=== PATIENT | male | born 1990 | race American Indian/Alaskan Native ===

== ENCOUNTER 2017-10-05 20:24 | Emergency (ER) | payer MEDICAID ==
[2017-10-05 20:32] VITALS: BP 136/72; PULSE 78; RESP 16; TEMP 98; O2SAT 98
--- NOTE | 2017-10-05 21:21 | ED PDOC ---
HPI: Psych/Substance Abuse Time Seen by Provider: 10/05/17 21:09 Chief Complaint (Nursing): Medical Clearance Chief Complaint (Provider): history of schizophrenia History/Exam Limitations: no limitations Involuntary Hold By: Local Law Enforcement Additional Complaint(s): Pt brought in to ER for evaluation prior to incarceration. Pt has no complaints. Has h/o schizophrenia on medications and he reports compliance. Denies suicidal or homicidal ideation Denies hallucinations PMD Dr Williamson (sp?) Past Medical History Reviewed: Historical Data, Nursing Documentation, Vital Signs Vital Signs: Last Vital Signs Temp 98.0 F 10/05/17 20:30 Pulse 78 10/05/17 20:30 Resp 16 10/05/17 20:30 BP 136/72 10/05/17 20:30 Pulse Ox 98 10/05/17 20:30 - Medical History PMH: Schizophrenia - Surgical History Surgical History: No Surg Hx - Family History Family History: States: No Known Family Hx - Social History Current smoker - smoking cessation education provided: Yes - Allergies Allergies/Adverse Reactions: Allergies Allergy/AdvReac Type Severity Reaction Status Date / Time No Known Allergies Allergy Verified 10/05/17 20:30 Review of Systems ROS Statement: Except As Marked, All Systems Reviewed And Found Negative Physical Exam - Reviewed Nursing Documentation Reviewed: Yes Vital Signs Reviewed: Yes - Physical Exam Appears: Positive for: Non-toxic, No Acute Distress Head Exam: Positive for: ATRAUMATIC, NORMOCEPHALIC Skin: Positive for: Warm, Dry Eye Exam: Positive for: EOMI, PERRL ENT: Positive for: Pharynx Is (clear) Neck: Positive for: Painless ROM, Supple Cardiovascular/Chest: Positive for: Regular Rate, Rhythm. Negative for: Murmur Respiratory: Positive for: Normal Breath Sounds. Negative for: Wheezing Gastrointestinal/Abdominal: Positive for: Soft. Negative for: Tenderness Back: Positive for: Normal Inspection. Negative for: Decreased ROM Extremity: Positive for: Normal ROM. Negative for: Deformity Neurologic/Psych: Positive for: Alert. Negative for: Motor/Sensory Deficits - ECG O2 Sat by Pulse Oximetry: 98 - Progress ED Course And Treament: Pt medically stable for incarceration Pending Crisis eval 2230 Evaluated by CW. Pt psychiatrically stable for incarceration Disposition - Clinical Impression Clinical Impression: Schizophrenia - Disposition Disposition: Routine/Home Disposition Time: 21:22 Condition: GOOD Additional Instructions: MEDICALLY AND PSYCHIATRICALLY STABLE FOR INCARCERATION CONTINUE ALL MEDICATIONS PRESCRIBED Instructions: Schizophrenia
== END 2017-10-05 22:41 ==
LOC: H.ER 20:24
DX: F20.9 Schizophrenia, unspecified (principal); F17.200 Nicotine dependence, unspecified, uncomplicated

== ENCOUNTER 2017-12-08 20:53 | Emergency (ER) | payer MEDICAID ==
[2017-12-08 20:56] VITALS: BP 127/77; PULSE 69; RESP 16; O2SAT 99
--- NOTE | 2017-12-08 21:10 | ED PDOC ---
HPI: General Adult Time Seen by Provider: 12/08/17 20:58 Chief Complaint (Nursing): Medical Clearance Chief Complaint (Provider): Medical and Psych Clearance History Per: Patient, Other ([place] [employer]) History/Exam Limitations: no limitations Additional Complaint(s): 27-year-old male brought to ED by [place] [employer] for medical and psychiatric clearance prior to incarceration. Patient offers no complaints at this time. Of note, PD at bedside reports patient may have swallowed bags marijuana just prior to arrest. Patient does admit to recreational marijuana use but denies swallowing the bags. PMD: None provided Past Medical History Reviewed: Historical Data, Nursing Documentation, Vital Signs Vital Signs: Last Vital Signs Temp 98.1 F 12/08/17 22:37 Pulse 69 12/08/17 20:54 Resp 16 12/08/17 20:54 BP 127/77 12/08/17 20:54 Pulse Ox 99 12/09/17 16:15 - Medical History PMH: Schizophrenia - Surgical History Surgical History: No Surg Hx - Family History Family History: States: Unknown Family Hx - Social History Current smoker - smoking cessation education provided: Yes (Tobacco) Alcohol: Social Drugs: Cannabis - Allergies Allergies/Adverse Reactions: Allergies Allergy/AdvReac Type Severity Reaction Status Date / Time No Known Allergies Allergy Verified 12/08/17 20:54 Review of Systems ROS Statement: Except As Marked, All Systems Reviewed And Found Negative Physical Exam - Reviewed Nursing Documentation Reviewed: Yes Vital Signs Reviewed: Yes - Physical Exam Appears: Positive for: Well (resting comfortably, calm, cooperative), Non-toxic , No Acute Distress Head Exam: Positive for: NORMOCEPHALIC Skin: Positive for: Normal Color, Warm, Dry Eye Exam: Positive for: EOMI, PERRL ENT: Positive for: Other (Mucus membranes moist. Airway patent, (-) stridor.) Neck: Positive for: Painless ROM, Supple Cardiovascular/Chest: Positive for: Regular Rate, Rhythm Respiratory: Positive for: Normal Breath Sounds. Negative for: Respiratory Distress Gastrointestinal/Abdominal: Positive for: Bowel Sounds (active x4), Soft. Negative for: Tenderness, Distended, Guarding Neurologic/Psych: Positive for: Alert, Oriented (x 3), Gait (steady in ED). Negative for: Aphasia, Facial Droop - ECG O2 Sat by Pulse Oximetry: 99 (RA) Pulse Ox Interpretation: Normal Medical Decision Making Medical Decision Making: Time: 21:09 Impression(s): Clearance for incarceration, Substance Abuse Plan: - Drug Screen, Urine - Crisis Evaluation As Ordered. - Abdomen (Flat Plate) X-Ray ordered for possible swallowed foreign body. 2139 Per crisis evaluation, patient is psychiatrically cleared for incarceration by Dr Caro with the diagnosis of Schizophrenia. 2144 Abdomen (Flat Plate) X-Ray. No foreign body or evidence of obstruction. Patient advised that official radiology read of XR is still pending and will call the patient if there is any discrepancy within 24 hours. 2219 Utox reviewed: (+) cannabinoids On re-evaluation, patient expresses no complaints. On exam, patient remains AAOx3, in no acute distress. On exam, neck is supple, lungs CTA, cardiac RRR, abdomen is soft and non-tender, neuro exam shows no focal findings. Tolerating PO intake. VSS, stable for discharge into PD custody. Diagnostic results d/w the patient in great detail. Dx of medical and psychiatric clearance for incarceration, schizophrenia d/w the patient. Based on history, exam and diagnostic results plan will be for discharge into PD custody. Advised to return to the emergency room at any time for any new or worsening symptoms. Patient states he fully agrees with and understands discharge instructions. States that he agrees with the plan and disposition. Verbalized and repeated discharge instructions and plan. I have given the patient opportunity to ask any additional questions. Scribe Attestation: Documented by Guido Vitale, acting as a scribe for Mariam Grey PA-C. Provider Scribe Attestation: All medical record entries made by the Scribe were at my direction and personally dictated by me. I have reviewed the chart and agree that the record accurately reflects my personal performance of the history, physical exam, medical decision making, and the department course for this patient. I have also personally directed, reviewed, and agree with the discharge instructions and disposition. Disposition - Clinical Impression Clinical Impression: Schizophrenia, Substance abuse, Medical clearance for incarceration - Patient ED Disposition Is Patient to be Admitted: No Counseled Patient/Family Regarding: Studies Performed, Diagnosis, Need For Followup, Rx Given - Disposition Disposition: Discharged/Transfer to Law Enforcement Disposition Time: 22:23 Condition: FAIR Additional Instructions: PATIENT IS MEDICALLY AND PSYCHIATRICALLY STABLE FOR INCARCERATION. RETURN TO ED WITH ANY NEW OR WORSENING SYMPTOMS. Instructions: Schizophrenia, Drug Abuse and Drug Addiction (DC) Forms: POW (Lao) Print Language: THAI - POA Present On Arrival: None Results - Lab Results Lab Results: 12/08/17 21:19 Urine Opiates Screen Negative Urine Methadone Screen Negative Ur Barbiturates Screen Negative Ur Phencyclidine Scrn Negative Ur Amphetamines Screen Negative U Benzodiazepines Scrn Negative U Oth Cocaine Metabols Negative U Cannabinoids Screen Positive H
[2017-12-08 22:08] LABS: BARBITURATES, UR NEGATIVE (NEGATIVE); BENZODIAZEPINES, UR NEGATIVE (NEGATIVE)
[2017-12-08 22:09] LABS: OPIATES, UR NEGATIVE (NEGATIVE); PHENCYCLIDINE, UR NEGATIVE (NEGATIVE)
[2017-12-08 23:02] VITALS: TEMP 98.1
--- NOTE | 2017-12-09 07:44 | RAD ---
HISTORY: possible swallowed FB COMPARISON: No prior. FINDINGS: BOWEL: Normal. No obstruction. No free air. BONES: Normal. OTHER FINDINGS: None. IMPRESSION: No active disease.
== END 2017-12-08 23:02 | disposition home or self-care (01) ==
LOC: H.ER 20:53
DX: F20.9 Schizophrenia, unspecified; F12.90 Cannabis use, unspecified, uncomplicated

== ENCOUNTER 2018-09-10 21:53 | Emergency (ER) | payer MEDICAID ==
[2018-09-10 22:35] VITALS: BP 102/73; PULSE 84; RESP 18; TEMP 98.5; O2SAT 98
--- NOTE | 2018-09-11 00:19 | ED PDOC ---
HPI: Skin/Bite Injury Time Seen by Provider: 09/10/18 22:35 Chief Complaint (Nursing): ENT Problem History Per: Patient History/Exam Limitations: no limitations Onset/Duration Of Symptoms: Hrs Additional Complaint(s): 28 yo M reports right ear infection after taking out his earring. He reports having ears pierced for a long time, but then kept the earrings in for a few months. he took them out today and noticed a bump to the front of his ear and mild pain to the back so he thinks it is infected. Denies fever, chills, drainage, changes in hearing. PMD: Dr. Mason Past Medical History Reviewed: Historical Data, Nursing Documentation, Vital Signs Vital Signs: Last Vital Signs Temp 98.5 F 09/10/18 22:32 Pulse 84 09/10/18 22:32 Resp 18 09/10/18 22:32 BP 102/73 09/10/18 22:32 Pulse Ox 98 09/10/18 22:32 - Medical History PMH: Schizophrenia Denies: Diabetes, Hepatitis, HIV, HTN, Chronic Kidney Disease, Seizures, Sexually Transmitted Disease - Family History Family History: States: Unknown Family Hx - Home Medications Home Medications: Ambulatory Orders Medication Instructions Recorded Bacitracin Ointment [Bacitracin] 30 gm TOP BID #1 tube 09/10/18 - Allergies Allergies/Adverse Reactions: Allergies Allergy/AdvReac Type Severity Reaction Status Date / Time No Known Allergies Allergy Verified 09/10/18 22:32 Review of Systems Constitutional: Negative for: Fever ENT: Positive for: Ear Pain. Negative for: Nose Congestion, Mouth Pain Physical Exam - Reviewed Nursing Documentation Reviewed: Yes - Physical Exam Comments: GENERALIZED APPEARANCE: Patient is awake, alert, oriented x3 in no acute distress. VITAL SIGNS: Per nurse's note, reviewed by me. SKIN: Warm, dry; (-) cyanosis. EYES: (-) conjunctival pallor, (-) scleral icterus. EARS: right external canal (+)small keloid vs skin tag over ear piercing opening anterior, (+) mild erythema with scab formation to posterior aspect (-) swelling (-)purulent drainage (-) warm to touch ENMT: Mucous membranes moist. NECK: (-) tenderness, (-) stiffness. CHEST AND RESPIRATORY: (-) rales, (-) rhonchi, (-) wheezes; breath sounds equal bilaterally. HEART AND CARDIOVASCULAR: Regular; (-) murmur, (-) gallop. ABDOMEN AND GI: Soft; (-) tenderness. EXTREMITIES: Otherwise normal. NEURO AND PSYCH: Mental status as above; (-) focal findings. - ECG O2 Sat by Pulse Oximetry: 98 Medical Decision Making Medical Decision Makin 28 yo M with keloid vs skin tag, with scabbed area with irritation vs start of infection, will treat with bacitracin, and instructed cleaning well with soap and wate, pt reports appointment with PMD tomorrow Discussed diagnosis, treatment, return precautions and f/u with pt who is understanding, in agreement and stable for dc Disposition - Clinical Impression Clinical Impression: Skin infection, Keloid of skin - Patient ED Disposition Is Patient to be Admitted: No Counseled Patient/Family Regarding: Studies Performed, Diagnosis, Need For Followup, Rx Given - Disposition Referrals: your doctor, Dr. Mason [Other] Disposition: Routine/Home Disposition Time: 23:16 Condition: STABLE Additional Instructions: Apply medication as prescribed to your ear. keep area clean and dry. Clean with soap and water. Do not put earrings in until healed. Thank you for letting us take care of you today. You were treated for skin infection and keloid. The emergency medical care you received today was directed at your acute symptoms. If you were prescribed any medication, please fill it and take as directed. It may take several days for your symptoms to resolve. Return to the Emergency Department if your symptoms worsen, do not improve, or if you have any other problems. Please contact your doctor in 2 days for re-evaluation and follow up / or call one of the physicians/clinics you have been referred to that are listed on the Patient Visit Information form that is included in your discharge packet. Bring any paperwork you were given at discharge with you along with any medications you are taking to your follow up visit. Our treatment cannot replace ongoing medical care by a primary care provider (PCP) outside of the emergency department. Prescriptions: Bacitracin Ointment [Bacitracin] 30 gm TOP BID #1 tube Instructions: Keloids, Wound Infection Forms: Lockr (Chinese) Print Language: SERBIAN - POA Present On Arrival: None
== END 2018-09-10 23:38 | disposition home or self-care (01) ==
LOC: H.ER 21:53
DX: L91.0 Hypertrophic scar (principal); L08.9 Local infection of the skin and subcutaneous tissue, unspecified